=== PATIENT | male | born 1965 | race Caucasian/White ===

== ENCOUNTER 2016-11-04 10:21 | Emergency (ER) | payer OTHER ==
[~2016-11-04] VITALS: Ht 182.9 cm; Wt 81.8 kg
[2016-11-04 10:23] VITALS: BP 143/89; PULSE 86; RESP 15; O2SAT 98
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
--- NOTE | 2016-11-04 11:33 | DRSVH ---
PROCEDURE: X-RAY LEFT RIBS INCLUDEING PA CHEST, MINUMUM THREE VIEWS ([id number]) INDICATIONS: possible fractured ribs on left TECHNIQUE: 3 views of the left ribs were acquired, along with a single view chest. COMPARISON: None. FINDINGS: Surgical changes and devices: None. Bones and chest wall: No acute fractures or dislocations. There is a healed lateral eighth left rib fracture. No suspicious bony lesions. A rounded radiopacity is projected over the right apex which may represent a foreign body in the soft tissues or an overlying radiopaque artifact. Overlying soft tissues appear otherwise unremarkable. Lungs and pleura: No pleural effusions or pneumothorax. Lungs appear clear. Mediastinum: Mediastinal contours appear normal. Heart size is normal. IMPRESSION: No acute displaced rib fractures. Dictated by: Sharee Boothe M.D. on 11/04/2016 at 11:30 Approved by: Sharee Boothe M.D. on 11/04/2016 at 11:31
== END 2016-11-04 12:23 | disposition home or self-care (01) ==
LOC: SED 10:21
DX: S29.9XXA Unspecified injury of thorax, initial encounter (principal); W00.0XXA Fall on same level due to ice and snow, initial encounter; Y93.89 Activity, other specified; Y92.9 Unspecified place or not applicable; Y99.8 Other external cause status